=== PATIENT | male | born 1995 | race Hispanic/Latino ===

== ENCOUNTER 2019-01-07 09:37 | Emergency (ER) | payer OTHER ==
[2019-01-07] MEDS ORDERED: IBUPROFEN 400 MG TABLET ONE (11:37)
== END 2019-01-07 11:58 | disposition home or self-care (01) ==
LOC: EEVIPCON 09:37 → EDH 09:37
DX: K52.9 Noninfective gastroenteritis and colitis, unspecified (principal); Z72.0 Tobacco use
CPT/HCPCS: 87804; 87880; 93005